=== PATIENT | male | born 1950 | race Caucasian/White ===

== ENCOUNTER 2016-12-21 23:36 | Inpatient (IN) ==
[2016-12-22] MEDS ORDERED: RELISTOR SUBQ ONE (01:16)
[2016-12-22 01:47] LABS: URINE CULTURE NEEDED? NO; URINE MICRO REVIEW NEEDED? NO; URINE SOURCE CATH
[2016-12-22 01:57] LABS: BILIRUBIN URINE NEGATIVE (NEGATIVE); BLOOD URINE NEGATIVE (NEGATIVE); COLOR YELLOW; GLUCOSE URINE NEGATIVE (NEGATIVE); LEUKOCYTES URINE NEGATIVE (NEGATIVE); NITRITE URINE NEGATIVE (NEGATIVE); PROTEIN URINE TRACE mg/dL (NEGATIVE); SP GRAVITY URINE 1.024; TURBIDITY URINE CLEAR (CLEAR); UROBILINOGEN URINE NORMAL (NORMAL)
[2016-12-22 01:58] LABS: UR EPITHELIAL CELLS <10 /HPF (<10); URINE BACTERIA NEGATIVE /HPF; URINE RBC <10 /HPF (<10); URINE WBC <10 /HPF (<10)
--- NOTE | 2016-12-22 03:16 | PROVIDER DOCUMENTATION ---
This chart was entered by Gerson Saba Scribe, acting as scribe for Dave Roberson MD. HPI-Abdominal Pain/GI Problem - General Chief Complaint: Post Op Complaint Stated Complaint: CONSTIPATION Time Seen by Provider: 12/22/16 00:36 Source: patient, family Allergies/Adverse Reactions: Patient Allergies Allergy/AdvReac Type Severity Reaction Status Date / Time codeine Allergy RASH Verified 12/22/16 01:13 Home Medications: Home Medication List Medication Instructions Recorded Confirmed Last Taken Type Amlodipine Besylate [Amlodipine 1 tab PO DAILY 12/22/16 12/22/16 Unknown History Besylate] Montelukast [Singulair] 10 mg PO DAILY 12/22/16 12/22/16 Unknown History Oxycodone HCl/Acetaminophen 1 tab PO PRN PRN 12/22/16 12/22/16 Unknown History [Oxycodone-Acetaminophen 10-325] Promethazine HCl 25 mg PO 12/22/16 Unknown History - History of Present Illness-ABD Nature of Presenting Problems: Pt is a 66 yowm who presents to ER with CC of post-op complications. Pt reports he had back surgery performed on Friday12/16/2016 at [place] (Surgeon was Dr. Chahal). Pt states that he has not had a significant bowel movement since his surgery and has developed urinary retention x24 hours. Pt and states that pt had fever of 99.6 at home, called surgeon's office, and was recommended to try fleet enemas or come to ER if fever reached 100.1. Pt was discharged with pain rx, and states that pt has not been following surgeons recommendations to take rx with food/drinks and to try and exercise regularly. Abdominal Pain Onset Location: reports: suprapubic Pain Radiation: reports: no radiation Quality of Pain: reports: aching, cramping Severity in ED: reports: moderate, severe Onset/Duration: reports: 5 days ago Timing: reports: still present Associated Symptoms: reports: constipation, fever/chills (subjective fever, no chills), genitourinary problems (retention/dribbling), nausea. denies: anxiety , chest pain, cough, diaphoresis, diarrhea, headaches, loss of appetite, muscle aches, shortness of breath, vomiting, weakness, trouble walking Last BM: other (no significant bm since surgery on 12/16/2016) Dark Stools Present?: reports: none noticed Rectal Bleeding: reports: none Rectal Pain: reports: none Emesis Description: reports: none Review of Systems - Adult - REVIEW OF SYSTEMS - ADULT Constitutional: reports: fever (99.6). denies: chills, fatique, night sweats, weight gain, weight loss Eyes: reports: no symptoms reported Ears, Nose, Mouth & Throat: reports: no symptoms reported Cardiovascular: denies: chest pain, edema, irregular heart rate, palpitations, poor circulation, syncope Respiratory: reports: no symptoms reported Gastrointestinal: reports: abdominal pain, constipation, nausea, poor appetite. denies: hematemesis, diarrhea, difficulty swallowing, frequent heartburn, rectal bleeding, vomiting Genitourinary: reports: urinary retention, other (dribbling). denies: dysuria, discharge, frequency, flank pain, frequent UTI's, hematuria, hesitency, incontinence, urgency Musculoskeletal: reports: no symptoms reported Integumentary: reports: no symptoms reported Neurological: reports: no symptoms reported Psychiatric: reports: no symptoms reported Endocrine: reports: no symptoms reported Hematologic/Lymphatic: reports: no symptoms reported Allergic/Immunologic: reports: no symptoms reported All Other Systems: Reviewed and Negative Past History - Adult - PAST MEDICAL HISTORY-ADULT Review of Records: reports: Nursing Assessment Review, Medications Reviewed - IMMUNIZATION STATUS Childhood Immunizations: See Nurse Assessment Flu Vaccine: See Nurse Assessment Physical Exam-General - PHYSICAL EXAM-ADULT Initial Vital Signs Reviewed: Yes - CONSTITUTIONAL General Appearance: appears well, alert, moderate distress, severe distress - RESPIRATORY Respiratory: chest non-tender, lungs clear, normal breath sounds, no pleuratic chest pain, no respiratory distress, no accessory muscle use. negative: respiratory distress, decreased breath sounds, accessory muscle use, wheezing - CARDIOVASCULAR Cardiovascular: normal peripheral pulses, regular rate, rhythm. negative: bradycardia, tachycardia, irregularly irregular - GASTROINTESTINAL (ABDOMEN) Abdominal Exam: abnormal bowel sounds (hyperactive), distended (adbominal distention; Urinary bladder distended to subumbilicus), tenderness (suprapubic/ lower quadrant). negative: normal bowel sounds, non tender, soft - SKIN Integumentary: normal color, normal turgor, warm/dry, laceration(s) (surgical mango in good position, no erythema, purulence, or signs of infection). negative: abrasion(s), diaphoresis, ecchymosis, erythema, swelling, tenderness, warm - NEUROLOGIC Neurologic: improvement analyst II-XII nml as tested, grossly normal, no motor/sensory deficits . negative: motor weakness, sensory deficit - PSYCHIATRIC Psych/Mental Status: normal thought content, normal thought process, oriented x 3, anxious, disheveled. negative: normal mood/affect Progress - PLAN OF CARE/RESULTS Progress/Plan/Lab Results: Vital Signs - 8 hr 12/21/16 23:44 Temperature 99.1 F Pulse Rate 105 H Respiratory Rate 24 Blood Pressure 153/67 O2 Sat by Pulse Oximetry 98 Orders Category Date Time Status FLAT/UPRIGHT ABD/1 VIEW CHEST [RAD] Stat Exams 12/22/16 00:05 Taken The bladder scan confirmed >700 ml of urine. A Rowan catheter was placed and 680 ml residual confirmed. He has not responded to Relistor so will need admission for IVFs , possible TPN, eetc. - XRAY 1 XRAY: Bilateral XRAY Study: Abdomen, Pelvis Impression: See EMR Report XRAY Interpretation: Air-fluid levels - Dr. Roberson - CONSULTS/PCP/HOSPITALIST Notification #1 *Consult/PCP/Hospitalist*: Dr Bishop Time Discussed: 03:16 Consult Disposition: Admit Departure - Departure Date of Disposition Decision: 12/22/16 Time of Disposition Decision: 03:14 DIAGNOSIS: Postoperative ileus Disposition: ADMITTED INPATIENT 09 Certified Medical Emergency: Emergent Condition: Good Referrals and Follow-Ups: Denise Fan MD [Primary Care Provider] - - Critical Care Note This patient required my direct & personal management of CC.: No This chart was documented by the indicated scribe, (Gerson Saba Scribe) and accurately reflects the services I performed and decisions made by me, Dave Roberson MD, as attested by the provider's signature.
[2016-12-22] MEDS ORDERED: NS 1,000 ML IV SCH (03:17)
[2016-12-22 03:22] LABS: MANUAL DIFF NEEDED? NO
[2016-12-22 03:27] LABS: BASO% 0.2 % (0.0-0.8); HEMOGLOBIN 12.1 g/dL (14.0-18.0); IMM GRAN# 0.02 X1000 (0.0-0.04); IMM GRAN% 0.2 % (0.0-0.5); LYMPH# 0.84 X1000 (1.2-3.4); LYMPH% 7.9 % (20.5-51.1); MCHC 33.6 g/dL (33-37); MCV 92.3 FL (81-99); MONO# 1.02 X1000 (0.11-0.59); MONO% 9.6 % (1.7-9.3); MPV 11.1 FL (7.4-10.4); NEUT% 82.1 % (42.2-75.2); PLT 221 X1000 (130-400)
[2016-12-22 03:46] LABS: AGAP 14; ALBUMIN 3.7 g/dL (3.5-5.0); ALKALINE PHOSPHATASE 94 U/L (32-122); BUN 20 mg/dL (8-22); CHLORIDE 100 mmol/L (98-107); COSMO 282; GOT 13 U/L (10-34); GPT 12 U/L (10-44); POTASSIUM 4.5 mmol/L (3.5-5.1); SODIUM 139 mmol/L (136-145); TCO2 25 mmol/L (25-35); TOTAL BILIRUBIN 0.82 mg/dL (0.20-1.00)
--- NOTE | 2016-12-22 04:23 | HISTORY AND PHYSICAL ---
PRIMARY CARE PHYSICIAN: Dr. Fan. CHIEF COMPLAINT: Abdominal pain. HISTORY OF PRESENTING ILLNESS: This is a 66-year-old male with a history of hypertension, who underwent recent back surgery about 5 days ago, who would stated that he went home and then developed abdominal pain. He was not really having any regular bowel movements but he was able to pass gas somewhat, but he states the pain was worsening. He rated the pain 6/10. Subsequently, he came to the emergency department. In the ER, he was evaluated. He had imaging done which did show suspicion for possible postoperative ileus. Subsequently, he will need hospitalization for further management. At the time of my examination, he had denied any headache, vision changes, fevers, chills, chest pain, shortness of breath, hemoptysis, or any weight changes but complained of abdominal pain. PAST MEDICAL HISTORY: Includes hypertension. 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 ALLERGIES: Codeine. CURRENT MEDICATIONS: As listed in the MAR. SOCIAL HISTORY: He denies any history of smoking. Admits to social alcohol use. Denies any illicit drug use. FAMILY HISTORY: No history of coronary disease. REVIEW OF SYSTEMS: Twelve point review of systems listed as in the HPI. Other systems negative. PHYSICAL EXAMINATION: GENERAL: Cooperative, friendly male. He is resting comfortably now. VITAL SIGNS: Temperature 99.1 degrees, pulse 105, respirations 24, blood pressure 153/67, he is saturating 98% on room air. HEENT: Atraumatic, normocephalic. Extraocular movements intact. PERRLA. NECK: Supple. CHEST: Clear to auscultation. CARDIOVASCULAR: Regular rhythm. ABDOMEN: Soft. Mild tenderness. EXTREMITIES: No edema. NEUROLOGIC: He is awake, alert, oriented x3. : No bladder distention. SKIN: Warm. LABORATORIES AND STUDIES: WBC 10.59, hemoglobin 12.1, hematocrit 36, platelets 221,000. Sodium 139, potassium 4.5, chloride 100, CO2 is 25, BUN is 20, creatinine 0.9, glucose is 125. ASSESSMENT: A 66-year-old male with a history of hypertension who recently underwent back surgery. Presented to the emergency department with the complaint of abdominal pain. He had imaging done which did show an ileus. Subsequently, he will need hospitalization for further management. 1. Abdominal pain. 2. Postoperative ileus. 3. Hypertension. 4. Status post recent back surgery. PLAN: 1. We will admit patient to the medical floor with telemetry. 2. Continue with supportive treatment with IV fluids, antiemetics, and pain control. 3. Monitor blood pressure closely. 4. We will resume home medications. 5. Put patient on DVT prophylaxis with SCDs. 6. We will continue to follow and reassess. cc: Braulio Bishop MD
[2016-12-22] MEDS ORDERED: ZOFRAN IV PRN (04:53)
[2016-12-22] MEDS ORDERED: DILAUDID IV PRN (04:53)
[2016-12-22] MEDS: NS 1,000 ML IV SCH ×2 (05:19→16:22)
[2016-12-22] MEDS: NORVASC PO SCH (09:37)
--- NOTE | 2016-12-22 09:37 | PROGRESS NOTE ---
DATE: 12/22/[address] Fan. SUBJECTIVE: Patient has already seen good response to Relistor subcutaneous medication. He has been stooling this morning and the abdomen is less painful. OBJECTIVE: Vital Signs: Afebrile. Vital signs stable. CV: RRR. Lungs: CTA. Abdomen: Soft. Active bowel sounds. Mild distention. Extremities: No edema. ASSESSMENT: 1. Postoperative ileus. 2. Status post cage lumbar spine surgery going through the right lower quadrant for access, within the past week. 3. Opioid narcotic usage for pain control. 4. Hypertension. PLAN: Continue Norvasc for BP control. Dilantin sparingly. Clear liquid diet. We will hold Relistor today but may require it again tomorrow. He complains of some burning sensation with his catheter so we will remove that as he is fairly mobile despite his recent surgery. was in the room with him and helps in his care. We will repeat flat and upright of the abdomen in the morning. cc: MD Tyron Andersen MD
--- NOTE | 2016-12-22 11:54 | Diag Imaging Result Doc PS360 ---
EXAM: FLAT/UPRIGHT ABD/1 VIEW CHEST INDICATION: constipation s/p surgery TECHNIQUE: 3 views COMPARISON: None. FINDINGS: There are nonspecific bowel gas patterns. There appear to be air-fluid levels in the colon but there is little distention. There is no obstructive bowel pattern. There is no evidence of large volume free abdominal gas. There is no evidence of organomegaly. The lungs are grossly clear. There is no discrete pleural fluid collection or pneumothorax. The cardiomediastinal silhouette and central vasculature are grossly unremarkable. IMPRESSION: Nonspecific abdomen. Electronically signed by Enrique Spencer 12/22/2016 11:51 AM
[2016-12-23] MEDS: NS 1,000 ML IV SCH (02:39)
[2016-12-23 06:19] LABS: MANUAL DIFF NEEDED? NO
--- NOTE | 2016-12-23 07:17 | Diag Imaging Result Doc PS360 ---
ABDOMEN FLAT/UPRIGHT - 12/23/2016 INDICATION: sbo TECHNIQUE: Two views COMPARISON: 12/22/2016 FINDINGS: There is a nonobstructive bowel gas pattern. No free air or abdominal calcifications. IMPRESSION: No acute disease. Electronically signed by Teofilo Langston 12/23/2016 7:15 AM
[2016-12-23 07:54] VITALS: BP 155/69
[2016-12-23 08:37] LABS: BASO% 0.4 % (0.0-0.8); EOS# 0.27 X1000 (0.0-0.7); EOS% 3.3 % (0.0-10.0); HEMATOCRIT 34.9 % (42.0-52.0); HEMOGLOBIN 11.6 g/dL (14.0-18.0); IMM GRAN# 0.03 X1000 (0.0-0.04); IMM GRAN% 0.4 % (0.0-0.5); LYMPH# 2.14 X1000 (1.2-3.4); LYMPH% 25.9 % (20.5-51.1); MCH 31.2 PG (27-31); MCHC 33.2 g/dL (33-37); MCV 93.8 FL (81-99); MONO# 0.96 X1000 (0.11-0.59); MONO% 11.6 % (1.7-9.3); MPV 11.7 FL (7.4-10.4); NEUT% 58.4 % (42.2-75.2); PLT 219 X1000 (130-400); RBC 3.72 XMIL (4.7-6.1)
[2016-12-23] MEDS: NORVASC PO SCH (08:45)
--- NOTE | 2016-12-25 08:53 | DISCHARGE SUMMARY ---
ADMISSION DATE: 12/22/2016 DISCHARGE DATE: 12/23/2016 DISCHARGING DIAGNOSIS: Abdominal pain due to ileus. SECONDARY DIAGNOSES: 1. Hypertension. 2. Chronic back pain, status post fusion anteriorly. BRIEF HISTORY: Please see the H and P that was done by hospitalist. In brief, he is a 66-year- old, white gentleman, recently had back surgery through the anterior approach by Dr. Umaña in [facility]. He was sent home. He came to the emergency room with abdominal pain, nausea, vomiting, obstipation. HOSPITAL COURSE: He was found to have ileus as well as a partial small bowel obstruction. He was given IV fluids, Dulcolax, and antiemetics with Zofran along with the Relistor. He started having good bowel movements. He has been tolerating the diet very well. LABORATORIES: CBC: White cell count 8.3, hematocrit 34, platelets 219,000. SMA 7 is normal. LFTs were normal. Followup chest x-ray on 12/23/2016, nonobstructive bowel gas pattern. DISCHARGE INSTRUCTIONS: 1. He is going to see Dr. Umaña tomorrow, on 12/24/2016. He still has the mango. 2. Singulair 10 mg daily, amlodipine 10 daily, Phenergan as needed, Percocet as needed for pain. 3. Follow up in my office in 10 days. cc: Tyron Fan MD
== END 2016-12-23 15:09 | disposition home or self-care (01) ==
LOC: ED 23:36 → SUATTDRO 12-22 04:09 → 4N 12-22 04:09
PROVIDERS: ADMIT Internal Medicine; ATTEND Internal Medicine